=== PATIENT | male | born 1975 | race Caucasian/White ===

== ENCOUNTER 2016-05-10 19:08 | Emergency (ER) | payer OTHER ==
[2016-05-10 19:51] VITALS: BP 132/66; PULSE 68; TEMP 98.1; BMI 26.6
[2016-05-10] MEDS ORDERED: OXYCODONE/APAP 5/325MG COMBO TABLET PO ONE (21:29)
[2016-05-10] MEDS ORDERED: OXYCODONE/APAP 5/325MG COMBO TABLET ONE (21:33)
[2016-05-10] MEDS ORDERED: SULFAMETHOXAZOLE/TRIMETHOPRIM 800MG/160MG D.S. TABLET PO ONE (21:37)
[2016-05-10] MEDS ORDERED: SULFAMETHOXAZOLE/TRIMETHOPRIM 800MG/160MG D.S. TABLET ONE (21:39)
--- NOTE | 2016-05-10 21:41 | PDOC ---
History of Present Illness - General Chief Complaint: Pain Stated Complaint: PAIN Time Seen by Provider: 05/10/16 20:11 History Source: Patient Exam Limitations: No Limitations - History of Present Illness Initial Comments: 05/10/16 21:38 CHIEF COMPLAINT: Anal "bump" HISTORY OF PRESENT ILLNESS: This is a 41 year old male with no significant past medical history presents with two days of painful "bump" near anus. No fevers or other systemic symptoms. No difficulty with defecation. V/s on arrival unremarkable. REVIEW OF SYSTEMS: GENERAL/CONSTITUTIONAL: No fever or chills. No weakness. No weight change. HEAD, EYES, EARS, NOSE AND THROAT: No change in vision. No ear pain or discharge. No sore throat. CARDIOVASCULAR: No chest pain or palpitations. RESPIRATORY: No cough, wheezing, or shortness of breath. GASTROINTESTINAL: No nausea, vomiting, diarrhea or constipation. GENITOURINARY: No dysuria, frequency, or change in urination. MUSCULOSKELETAL: No joint or muscle swelling or pain. No neck or back pain. SKIN: See HPI. NEUROLOGIC: No headache, vertigo, loss of consciousness, or loss of sensation. PSYCHIATRIC: No depression or anxiety. ENDOCRINE: No increased thirst. No abnormal weight change. HEMATOLOGIC/LYMPHATIC: No anemia, easy bleeding, or history of blood clots. ALLERGIC/IMMUNOLOGIC: No hives or skin allergy. No latex allergy. PHYSICAL EXAM: GENERAL: The patient is awake, alert, and fully oriented, in no acute distress. HEAD: Normal with no signs of trauma. ENT: Pupils equal, round and reactive to light, extraocular movements intact, sclera anicteric, conjunctiva clear. Neck supple. LUNGS: Clear to auscultation bilaterally. Normal excursion. No respiratory distress or use of accessory muscles. CV: RRR, S1/S2, no MRG. Cap refill < 2 sec. ABDOMEN: Soft, non-distended, non-tender. EXTREMITIES: Normal range of motion, no edema. NEUROLOGICAL: Normal speech, normal gait. CN II-XII grossly intact. PSYCH: Normal mood, normal affect. SKIN: 2 cm x 2cm tender mass superior to anus with minimal fluctuance and no central pustule. No surrounding erythema. Past History - Past Medical History Allergies/Adverse Reactions: Allergies Allergy/AdvReac Type Severity Reaction Status Date / Time No Known Allergies Allergy Verified 05/10/16 19:51 Home Medications: Ambulatory Orders Docusate Sodium [Colace -] 100 mg PO TID #21 capsule 05/10/16 Oxycodone HCl/Acetaminophen [Percocet 5-325 mg Tablet] 1 - 2 tab PO Q6H #20 tab MDD 8 tabs 05/10/16 Sulfamethoxazole/Trimethoprim [Bactrim Ds -] 1 tab PO BID #14 tablet 05/10/16 - Psycho/Social/Smoking Cessation Hx Anxiety: No Suicidal Ideation: No Smoking History: Never smoked Have you smoked in the past 12 months: No Information on smoking cessation initiated: No Hx Alcohol Use: No Drug/Substance Use Hx: No Substance Use Type: None *Physical Exam - Vital Signs Last Vital Signs Temp Pulse Resp BP Pulse Ox 98.1 F 68 18 132/66 100 05/10/16 19:48 05/10/16 19:48 05/10/16 19:48 05/10/16 19:48 05/10/16 19:48 ED Treatment Course - Medications Given in the ED: ED Medications Discontinued Medications Generic Name Dose Route Start Last Admin Trade Name Duyen PRN Reason Stop Dose Admin Oxycodone/Acetaminophen 1 combo 05/10/16 21:29 05/10/16 21:34 Percocet 5/325 - PO 05/10/16 21:30 1 combo ONCE ONE Administration Medical Decision Making - Medical Decision Making 05/10/16 22:56 A/P: 41 year old male with perianal abscess, no surrounding cellulitis. No central pustule, minimal fluctuance. Not yet ready for I&D. -Analgesia -Bactrim -Warm soaks -Patient given option of surgical office followup or return ED visit -Return precautions reviewed *DC/Admit/Observation/Transfer Diagnosis at time of Disposition: Perianal abscess - Discharge Dispostion Disposition: HOME Condition at time of disposition: Stable Admit: No - Prescriptions Prescriptions: Sulfamethoxazole/Trimethoprim [Bactrim Ds -] 1 tab PO BID #14 tablet Docusate Sodium [Colace -] 100 mg PO TID #21 capsule Oxycodone HCl/Acetaminophen [Percocet 5-325 mg Tablet] 1 - 2 tab PO Q6H #20 tab MDD 8 tabs - Referrals Referrals: Ezequiel Woods MD [Staff Physician] - Call tomorrow - Patient Instructions Printed Discharge Instructions: DI for Anal Abscess Additional Instructions: -Take Bactrim (antibiotics) as prescribed -Take Percocet as needed for severe pain -Do warm soaks multiple times a day -Follow up with Dr. Woods in the office in 2-3 days (call the number enclosed for an appointment) OR you can return here for incision and drainage -Return here for fever (temperature over 100.4), inability to have a bowel movement, or any other concerning symptoms
== END 2016-05-10 21:45 | disposition home or self-care (01) ==
LOC: JERFT 19:08
DX: K61.0 Anal abscess (principal)
CPT/HCPCS: 99281-25

== ENCOUNTER 2016-05-11 19:40 | Emergency (ER) | payer OTHER ==
--- NOTE | 2016-05-11 19:46 | PDOC ---
Rapid Medical Evaluation Time Seen by Provider: 05/11/16 19:45 Medical Evaluation: Allergies Allergy/AdvReac Type Severity Reaction Status Date / Time No Known Allergies Allergy Verified 05/10/16 19:51 05/11/16 19:45 41 year old male seen in [facility] yesterday with early perianal abscess. Dc home with Bactrim, Percocet, surgery referral. Returns today after seeing blood with bowel movement. V/s unremarkable. -To [facility] for further evaluation
[2016-05-11 19:49] VITALS: BP 133/81; PULSE 83; TEMP 97.8; BMI 27.3
[2016-05-11] MEDS ORDERED: CEPHALEXIN MONOHYDRATE 500 MG CAPSULE (UD) PO ONE (21:14)
[2016-05-11] MEDS ORDERED: CEPHALEXIN MONOHYDRATE 500 MG CAPSULE (UD) ONE (21:16)
--- NOTE | 2016-05-11 21:17 | PDOC ---
[id number] 4d REVISIT/PAIN Time Seen by Provider: 05/11/16 19:45 History Source: Patient Exam Limitations: No Limitations - History of Present Illness Initial Comments: 05/11/16 21:22 My Chief Complaint: Bleeding noted today small amount when having bowel movements History or present illness: Patient is a 41-year-old male who was seen here yesterday due to a raised tender area on the right perirectal area that has been getting tender and bigger patient today noticed a tiny amount of blood in the toilet when having a bowel movement. Patient was seen here yesterday and was started on Bactrim and given Colace and pain medication. Patient denies that area had been open or draining. Patient denies ever having this condition in the past. Patient denies any fever, nausea, vomiting, bowel movement was formed. 05/11/16 22:41 Timing/Duration: getting worse Severity: mild Associated Symptoms: reports: other (open area rt. of anus today with bloody disguise ) Past History - Past Medical History Allergies/Adverse Reactions: Allergies Allergy/AdvReac Type Severity Reaction Status Date / Time No Known Allergies Allergy Verified 05/11/16 19:46 Home Medications: Ambulatory Orders Docusate Sodium [Colace -] 100 mg PO TID #21 capsule 05/10/16 Oxycodone HCl/Acetaminophen [Percocet 5-325 mg Tablet] 1 - 2 tab PO Q6H #20 tab MDD 8 tabs 05/10/16 Sulfamethoxazole/Trimethoprim [Bactrim DS -] 1 tab PO BID #14 tablet 05/10/16 Cephalexin Monohydrate [Keflex -] 500 mg PO Q6H #28 capsule 05/11/16 Other medical history: denies - Immunization History Immunization Up to Date: Yes - Psycho/Social/Smoking Cessation Hx Anxiety: No Suicidal Ideation: No Smoking History: Never smoked Have you smoked in the past 12 months: No Information on smoking cessation initiated: No Hx Alcohol Use: No Drug/Substance Use Hx: No Substance Use Type: None Review of Systems - Review of Systems Able to Perform ROS?: Yes Constitutional: No: Symptoms Reported HEENTM: No: Symptoms Reported Respiratory: No: Symptoms reported Cardiac (ROS): No: Symptoms Reported ABD/GI: No: Symptoms Reported : Yes: Other (rt. of anus pea size open area draining bloody discharge). No: Symptoms Reported Musculoskeletal: No: Symptoms Reported Integumentary: Yes: Other. No: Symptoms Reported Neurological: No: Symptoms reported *Physical Exam - Vital Signs Last Vital Signs Temp Pulse Resp BP Pulse Ox 97.8 F 83 20 133/81 100 05/11/16 19:46 05/11/16 19:46 05/11/16 19:46 05/11/16 19:46 05/11/16 19:46 - Physical Exam General Appearance: Yes: Appropriately Dressed Respiratory/Chest: positive: Lungs Clear, Normal Breath Sounds Cardiovascular: positive: Regular Rhythm, Regular Rate, S1, S2 Gastrointestinal/Abdominal: positive: Normal Bowel Sounds, Soft. negative: Tender, Organomegaly, Protuberent, Distended, Guarding, Rebound, Tenderness, Hepatomegaly, Spleenomegaly Rectal Exam: positive: normal rectal tone, other (pea size open area rt. of anus draining tiny amout of bloody discharge no surrounding erythema, tender, ) . negative: hemorrhoids Medical Decision Making - Medical Decision Making 05/11/16 21:26 Patient is a 41-year-old male who was seen here yesterday due to a raised tender area on the right perirectal area that has been getting tender and bigger patient today noticed a tiny amount of blood in the toilet when having a bowel movement. Patient was seen here yesterday and was started on Bactrim and given Colace and pain medication. Patient denies that area had been open or draining. Patient denies ever having this condition in the past. Patient denies any fever, nausea, vomiting, bowel movement was formed. Perirectal abscess with tiny opening noted today rt. sided PLAN add keflex 500 mg po now than every 6 hrs for 7 days Continue on Bactrim, Colace, and Percocet as ordered yesterday Patient to start doing sitz bath every couple of hours and to follow-up with a rectal surgeon at [facility] or at [facility] 05/11/16 22:45 *DC/Admit/Observation/Transfer Diagnosis at time of Disposition: Neva-rectal abscess - Discharge Dispostion Disposition: HOME Condition at time of disposition: Stable - Prescriptions Prescriptions: Cephalexin Monohydrate [Keflex -] 500 mg PO Q6H #28 capsule - Patient Instructions Additional Instructions: soak your buttock in warm water every 3-4 hours to help abscess drained in for your comfort Two-view to take medications that she were prescribed yesterday and patient ordered today You must follow up with a rectal surgeon at [facility] Return to emergency room if any fever or worsening pain or inability to have bowel movement Patient voiced understanding of discharge instructions and all questions were answered Remoje la nalga en agua tibia cada 3-4 horas para ayudar a que el absceso se vac e para tsai comodidad Dos vistas para tangela los medicamentos que le prescribieron zackery y el paciente orden hoy Usted debe seguir con un cirujano rectal en [facility] [phone] Regreso a la flores de emergencias si hay fiebre o empeoramiento del dolor o incapacidad de moverse - Post Discharge Activity Work/School Note: Back to Work
== END 2016-05-11 21:37 | disposition home or self-care (01) ==
LOC: JERFT 19:40
DX: K61.1 Rectal abscess (principal)
CPT/HCPCS: 99281-25

== ENCOUNTER 2017-04-09 09:06 | Emergency (ER) | payer OTHER ==
[2017-04-09 09:11] VITALS: BP 115/70; PULSE 59; TEMP 97.8; BMI 28.3
--- NOTE | 2017-04-09 09:47 | PDOC ---
History of Present Illness - General Chief Complaint: Itching Stated Complaint: RECTAL PROBLEM Time Seen by Provider: 04/09/17 09:36 History Source: Patient Exam Limitations: No Limitations - History of Present Illness Initial Comments: 04/09/17 09:44 Patient is here with complaints of pain and drainage to his rectum. Has history of perirectal abscess that was opened and drained here last year. States this has not had a problem since an 3 days ago where he had an acute onset of swelling and tenderness again. States started a few days ago and has been burning and painful since. States had a small lesion that opened and drained yesterday. Came today for evaluation Use some cream that he uses for his baby which helped resolve some of the itching. Patient states has had this happen in the past. Denies fever, denies history of constipation. 04/09/17 09:48 Timing/Duration: unsure, 24 hours Severity: mild Associated Symptoms: reports: denies symptoms. denies: fever/chills Past History - Travel Traveled outside of the country in the last 30 days: No Close contact w/someone who was outside of country & ill: No - Past Medical History Allergies/Adverse Reactions: Allergies Allergy/AdvReac Type Severity Reaction Status Date / Time No Known Allergies Allergy Verified 04/09/17 09:11 Home Medications: Ambulatory Orders NK [No Known Home Medication] 04/09/17 COPD: No - Immunization History Immunization Up to Date: Yes - Suicide/Smoking/Psychosocial Hx Smoking History: Never smoked Have you smoked in the past 12 months: No Hx Alcohol Use: Yes (OCCASIONALLY) Drug/Substance Use Hx: No Substance Use Type: None Review of Systems - Review of Systems Able to Perform ROS?: Yes Is the patient limited Yoruba proficient: Yes Constitutional: Yes: Symptoms Reported, See HPI, Malaise ABD/GI: Yes: Symptoms Reported, See HPI, Other (itching, and tenderness at site of old abscess, states opened and drained 2 days ago). No: Rectal Bleeding : No: Symptoms Reported Integumentary: Yes: Symptoms Reported Neurological: Yes: Symptoms reported All Other Systems: Reviewed and Negative *Physical Exam - Vital Signs Last Vital Signs Temp Pulse Resp BP Pulse Ox 97.8 F 59 L 18 115/70 99 04/09/17 09:07 04/09/17 09:07 04/09/17 09:07 04/09/17 09:07 04/09/17 09:07 - Physical Exam General Appearance: Yes: Nourished, Appropriately Dressed. No: Apparent Distress HEENT: positive: CARLOS, Normal ENT Inspection, TMs Normal, Pharynx Normal Neck: negative: Tender Gastrointestinal/Abdominal: positive: Normal Bowel Sounds, Soft. negative: Tender Rectal Exam: positive: normal exam, other (patient with scabbed nontender, nonfluctuant lesion distal to rectum, appears to be healed abscess. No noted hemorrhoids, no other defects or lesions and rectal area) Musculoskeletal: positive: Normal Inspection Extremity: positive: Normal Capillary Refill Integumentary: positive: Normal Color, Dry, Warm Neurologic: positive: soaker hides II-XII NML intact, Fully Oriented, Alert, Normal Mood/ Affect Medical Decision Making - Medical Decision Making 04/09/17 12:24 History of anal abscess, resolved spontaneously. No further treatment required. Patient encouraged to follow-up with Dr. Woods for reevaluation and possible excision of potential crypt or other rectal issue. *DC/Admit/Observation/Transfer Diagnosis at time of Disposition: Neva-rectal abscess - Discharge Dispostion Disposition: HOME Condition at time of disposition: Stable Admit: No - Referrals Referrals: Ezequiel Woods MD [Staff Physician] - - Patient Instructions Printed Discharge Instructions: DI for Anal Abscess Additional Instructions: Rest, keep area elevated. Avoid strenuous activity or exercise until wound is healed Use hot soaks to area to bring more blood to the surface and encourage drainage May use Tylenol or Motrin for mild pain relief Call and be seen by Dr. Woods, surgeon for reevaluation of recurrent abscess Followup with private physician in 2-3 days for wound check Return to emergency Department for worsening swelling, pain, redness, fevers as needed - Post Discharge Activity Forms/Work/School Notes: Back to Work
== END 2017-04-09 10:11 | disposition home or self-care (01) ==
LOC: JERFT 09:06
DX: K61.1 Rectal abscess (principal)
CPT/HCPCS: 99281-25